=== PATIENT | female | born 1980 | race Caucasian/White ===

== ENCOUNTER 2018-08-26 22:40 | Emergency (ER) | payer OTHER ==
[~2018-08-26] VITALS: Ht 167.6 cm; Wt 108.9 kg
--- NOTE | 2018-08-26 22:55 | NUR ---
ER Nurse Note: Pt walked into ER from home c/o right 5th digit toe pain. Pt stated she hit her right toe on her dresser around 2200, toe "shifted out of place". Pt states 7/10 pain. Skin intact, cap refill less than 3 secs with blanching. Will continue to montior.
[2018-08-26] MEDS ORDERED: HYDROcodone/Acetamin 5/325 tab ORAL ONE (23:00)
--- NOTE | 2018-08-26 23:08 | Emergency Room Report ---
History of Present Illness General Chief Complaint: Lower Extremity Injury Source: Patient Present Illness HPI This is a 38-year-old female with history of asthma. She presents with chief complaint of toe pain. She was walking to the bathroom and stubbed her toe. She has deformity to the right fifth toe. Pain is 8 out of 10. Worse with walking. No other injury. No laceration. Occurred just prior to arrival. Allergies: Coded Allergies: CEPHALOSPORINS (Verified Allergy, Unknown, 08/26/18) ERYTHROMYCIN BASE (Verified Allergy, Unknown, 08/26/18) PENICILLINS (Verified Allergy, Unknown, 08/26/18) PHENAZOPYRIDINE (Verified Allergy, Unknown, 08/26/18) Uncoded Allergies: SURGICAL TAPE (Allergy, Unknown, 08/26/18) Patient History Past Medical History: asthma Past Surgical History: none Pertinent Family History: none Social History: Denies: smoking Last Menstrual Period: 08/20/18 Now: No Immunizations: other Reviewed Nursing Documentation: PMH: Agreed; PSxH: Agreed Nursing Documentation-PMH Past Medical History: No History, Except For Hx Asthma: Yes Review of Systems Eye: Denies: eye pain, blurred vision ENT: Denies: ear pain, nose congestion, throat swelling Respiratory: Denies: cough, shortness of breath Cardiovascular: Denies: chest pain, palpitations Gastrointestinal: Denies: abdominal pain, diarrhea, nausea, vomiting Musculoskeletal: Reports: joint pain; Denies: back pain Skin: Denies: rash Neurological: Denies: headache, numbness Endocrine: Denies: increased thirst, increased urine Hematologic/Lymphatic: Denies: easy bruising All Other Systems: negative except mentioned in HPI Physical Exam Vital Signs Date Time Temp Pulse Resp B/P (MAP) Pulse Ox O2 Delivery O2 Flow Rate FiO2 08/26/18 22:41 98.1 94 14 96 Room Air vitals unremarkable Sp02 EP Interpretation: reviewed, normal General Appearance: well appearing, no apparent distress, alert Head: normocephalic, atraumatic Eyes: bilateral eye PERRL, bilateral eye EOMI ENT: hearing grossly normal, normal pharynx Neck: full range of motion, supple, no meningismus Respiratory: chest non-tender, lungs clear, normal breath sounds Cardiovascular #1: regular rate, rhythm, no murmur Gastrointestinal: normal bowel sounds, non tender, no mass, no organomegaly, no bruit, non-distended Musculoskeletal: back normal, gait/station normal, normal range of motion, other Psychiatric: mood/affect normal Skin: warm/dry Procedures Splinting Splinting : Consent: Verbal Location: Right toe Hand-Made Type: Pre-Proc Neuro Vasc Exam: normal Post-Proc Neuro Vasc Exam: normal Patient Tolerated: Well Complications: None Progress Area cleaned with chlorhexidine. Injected small amount of 1% lidocaine for hematoma block. I reduce the fifth toe and jermaine tape it to the fourth toe. Orthopedic shoes and crutches given. Medical Decision Making Diagnostic Impression: Primary Impression: Toe fracture, right Qualified Codes: S92.511A - Displaced fracture of proximal phalanx of right lesser toe(s), initial encounter for closed fracture ER Course Patient with toe fracture. No dislocation. We'll discharge home. Other X-Ray Diagnostic Results Other X-Ray Diagnostic Results : X-Ray ordered: Right toe x-rays # of Views/Limited Vs Complete: 3 View Indication: Pain EP Interpretation: Yes Interpretation: no dislocation, no soft tissue swelling, other - Fracture phalanx Impression: Other - toe frx Electronically Signed by: Fly Cano MD Last Vital Signs Date Time Temp Pulse Resp B/P (MAP) Pulse Ox O2 Delivery O2 Flow Rate FiO2 08/26/18 22:41 98.1 94 14 96 Room Air Status: improved Disposition: HOME, SELF-CARE Condition: Stable Scripts Ibuprofen* (MOTRIN*) 600 Mg Tablet 600 MG ORAL THREE TIMES A DAY, #30 TAB 0 Refills Prov: Fly Cano MD 08/26/18 Hydrocodone/Acetaminophen 5-325* (HYDROCODONE/ACETAMINOPHEN 5-325*) 1 Each Tablet 1 TAB ORAL Q6H PRN for For Pain, #15 TAB 0 Refills Prov: Fly Cano MD 08/26/18 Additional Instructions: Elevate foot. Weightbearing as tolerated. Ice pack to the area. Follow-up with your doctor in 7 days. Return if worse. Fly Cano MD August 26, 2018 23:08
[2018-08-26] MEDS ORDERED: HYDROCODON-ACE1 EA15 ORAL (23:35)
[2018-08-26] MEDS ORDERED: IBUPROFEN600 MG ORAL (23:35)
[2018-08-26 23:45] VITALS: BP 137/88
--- NOTE | 2018-08-26 23:55 | NUR ---
ER Nurse Note: All orders completed per ERMD orders. Pt seen, treated, medically cleared for discharge by ERMD. Discharge instructions and prescriptions given with repeat verbazliaion by pt. Instructed pt to follow up with primary care provider within one week. Pt a&ox4, VSS, no signs of distress. Provided crutch education with return demonstration by pt. Supplies provided for reapplying jermaine splint. ID band removed. Pt left with all belongings with steady gait via own transportation.
--- NOTE | 2018-08-27 12:56 | Diagnostic Imaging Report ---
Indication: Right toe pain Comparison: None Findings: 3 views of the right forefoot obtained. There is an acute fracture involving the fifth proximal phalange. Soft tissue swelling noted. IMPRESSION: Acute fracture
== END 2018-08-26 23:55 | disposition home or self-care (01) ==
LOC: EMR 23:29
DX: S92.511A Displaced fracture of proximal phalanx of right lesser toe(s), initial encounter for closed fracture (principal); W22.8XXA Striking against or struck by other objects, initial encounter; Y92.9 Unspecified place or not applicable; Z88.6 Allergy status to analgesic agent; Z88.0 Allergy status to penicillin
CPT/HCPCS: 99283

== ENCOUNTER 2018-12-16 20:20 | Emergency (ER) | payer OTHER ==
[~2018-12-16] VITALS: Ht 167.6 cm; Wt 113.4 kg
[~2018-12-16 20:20] MED LIST: HYDROCODON-ACE1 EA15 ORAL; IBUPROFEN600 MG ORAL
[2018-12-16] MEDS ORDERED: SYNTHROID150 MCG ORAL (20:34)
[2018-12-16 20:40] VITALS: BP 148/87
--- NOTE | 2018-12-16 20:40 | NUR ---
ED Nurse Note: Jennifer walked into ED c/o pain primarily in her right upper back, states that she began experiencing pain earlier this morning. AAO x4, VSS at this time.
[2018-12-16] MEDS ORDERED: GABAPENTIN100 MG ORAL (21:07)
--- NOTE | 2018-12-16 21:08 | Emergency Room Report ---
History of Present Illness General Chief Complaint: Pain Source: Patient Present Illness HPI This is a 38-year-old female with history of chronic pain with previous occipital neuralgia, SI pain to name a few. He presents with acute onset of sharp pain to the right shoulder scapular area. Similar to her previous occipital pain. Pain was sharp and throbbing. Ibuprofen will reduce the pain from a 10 out of 10 to a 5 out of 10 right now. No trauma. No fever chills. Call her pain specialist who told to go to ER. Denies any shortness of breath. Denies any chest pain. Denies any other complaint. Allergies: Coded Allergies: CEPHALOSPORINS (Verified Allergy, Unknown, 08/26/18) ERYTHROMYCIN BASE (Verified Allergy, Unknown, 08/26/18) PENICILLINS (Verified Allergy, Unknown, 08/26/18) PHENAZOPYRIDINE (Verified Allergy, Unknown, 08/26/18) Uncoded Allergies: SURGICAL TAPE (Allergy, Unknown, 08/26/18) Patient History Past Medical History: see triage record, old chart reviewed Past Surgical History: other Pertinent Family History: none Social History: Denies: smoking Last Menstrual Period: 12/12/18 Now: No Immunizations: other Reviewed Nursing Documentation: PMH: Agreed; PSxH: Agreed Nursing Documentation-PMH Past Medical History: No History, Except For Hx Asthma: Yes Review of Systems Eye: Denies: eye pain, blurred vision ENT: Denies: ear pain, nose congestion, throat swelling Respiratory: Denies: cough, shortness of breath Cardiovascular: Denies: chest pain, palpitations Gastrointestinal: Denies: abdominal pain, diarrhea, nausea, vomiting Musculoskeletal: Denies: back pain, joint pain Skin: Denies: rash Neurological: Denies: headache, numbness Endocrine: Denies: increased thirst, increased urine Hematologic/Lymphatic: Denies: easy bruising All Other Systems: negative except mentioned in HPI Physical Exam Vital Signs Date Time Temp Pulse Resp B/P (MAP) Pulse Ox O2 Delivery O2 Flow Rate FiO2 12/16/18 20:29 98.4 66 18 148/87 (107) 98 Room Air Vitals high blood pressure Sp02 EP Interpretation: reviewed, normal General Appearance: well appearing, no apparent distress, alert Head: normocephalic, atraumatic Eyes: bilateral eye PERRL, bilateral eye EOMI ENT: hearing grossly normal, normal pharynx Neck: full range of motion, supple, no meningismus Respiratory: chest non-tender, lungs clear, normal breath sounds Cardiovascular #1: regular rate, rhythm, no murmur Gastrointestinal: normal bowel sounds, non tender, no mass, no organomegaly, no bruit, non-distended Musculoskeletal: back normal, gait/station normal, normal range of motion, tender - Tenderness along the C7-T1 area. Psychiatric: mood/affect normal Medical Decision Making Diagnostic Impression: Primary Impression: Neuropathic pain ER Course Patient presents with pain that is consistent with neuropathy. Could be shingle /zoster but I do not see any rash. No evidence of any PE, ACS, dissection. No evidence of any cauda equina syndrome. No evidence of any spinal epidural abscess. Will discharge home. Last Vital Signs Date Time Temp Pulse Resp B/P (MAP) Pulse Ox O2 Delivery O2 Flow Rate FiO2 12/16/18 20:29 98.4 66 18 148/87 (107) 98 Room Air Status: unchanged Disposition: HOME, SELF-CARE Condition: Stable Scripts Gabapentin* (GABAPENTIN*) 100 Mg Capsule 200 MG ORAL THREE TIMES A DAY, #30 CAP Prov: Fly Cano MD 12/16/18 Additional Instructions: Follow-up with your neurologist within a week. Return if symptoms worsen. Fly Cano MD Dec 16, 2018 21:08
[2018-12-16 21:16] VITALS: BP 148/87
--- NOTE | 2018-12-16 21:17 | NUR ---
ED Nurse Note: Pt cleared by health care Provider for discharge. DC instructions/prescription was given and explained to pt and verbalized understanding of teachings. All medical deviecs such as ID band removed. Pt is AAO x4, ambulatory and left with all personal belongings.
== END 2018-12-16 21:18 | disposition home or self-care (01) ==
LOC: EMR 20:58
DX: G62.9 Polyneuropathy, unspecified (principal); J45.909 Unspecified asthma, uncomplicated; Z88.0 Allergy status to penicillin; Z88.1 Allergy status to other antibiotic agents; Z88.8 Allergy status to other drugs, medicaments and biological substances; Z91.048 Other nonmedicinal substance allergy status
CPT/HCPCS: 99282